=== PATIENT | male | born 1990 | race Caucasian/White ===

== ENCOUNTER 2021-02-11 19:40 | Emergency (ER) | payer SELFPAY ==
[~2021-02-11] VITALS: Ht 185.4 cm; Wt 84.8 kg
[2021-02-11] MEDS ORDERED: AZIT250T13 PO (20:31)
[2021-02-11 20:42] VITALS: BP 122/67
--- NOTE | 2021-02-11 20:43 | NUR ---
Patient discharged to home in stable condition. Written and verbal after care instructions given. Patient verbalizes understanding of instructions. Stressed follow up or return to ER for worsening s/s. Belongings with patient. VSS. Steady gait.
== END 2021-02-11 20:43 | disposition home or self-care (01) ==
LOC: ER 19:46
DX: J40 Bronchitis, not specified as acute or chronic (principal); Z20.822 Contact with and (suspected) exposure to COVID-19
CPT/HCPCS: 71045; A4663